=== PATIENT | female | born 1965 | race Caucasian/White ===

== ENCOUNTER 2018-04-06 22:37 | Emergency (ER) | payer BC ==
[~2018-04-06] VITALS: Ht 167.6 cm; Wt 72.6 kg
[2018-04-06] MEDS ORDERED: CYMBALTA60 MG ORAL (22:44)
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
[2018-04-06] MEDS ORDERED: Ketorolac 60mg Inj IM ONE (23:00)
[2018-04-06] MEDS ORDERED: HYDROcodone/Acetamin 10/325 tab ORAL ONE (23:00)
[2018-04-06 23:19] VITALS: BP 117/77
[2018-04-07] MEDS ORDERED: HYDROmorphone 1mg/ml Carpuject IM ONE (01:15)
[2018-04-07] MEDS ORDERED: HYDROmorphone 1mg/ml Carpuject ONE (01:31)
[2018-04-07] MEDS ORDERED: IBUPROFEN600 MG ORAL (02:08)
[2018-04-07] MEDS ORDERED: ROBAXIN-750750 MG PO (02:08)
[2018-04-07 02:46] VITALS: BP 125/80
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
== END 2018-04-07 02:47 | disposition home or self-care (01) ==
LOC: EDBD 22:37 → EMR 22:57
DX: S13.9XXA Sprain of joints and ligaments of unspecified parts of neck, initial encounter (principal); Y08.89XA Assault by other specified means, initial encounter; Y92.9 Unspecified place or not applicable; R51 Headache; Z91.040 Latex allergy status; Z88.5 Allergy status to narcotic agent
CPT/HCPCS: 70450; 72125; 96372; 99284; J1170